=== PATIENT | female | born 1990 | race Caucasian/White ===

== ENCOUNTER → 2025-04-29 | Outpatient (CLI) | payer OTHER ==
[2025-04-29 10:46] LABS: BASO # 0.0 10^3/uL (0.0-0.2); BASO % 0.9 % (0.0-1.0); EOS # 0.1 10^3/uL (0.0-0.5); EOS % 1.5 % (0.0-3.0); LYMPH # 1.6 10^3/uL (1.5-5.0); LYMPH % 33.3 % (24.0-44.0); MONO # 0.3 10^3/uL (0.0-0.8); MONO % 5.8 % (2.0-8.0); NEUTROPHILS # 2.7 10^3/uL (1.5-8.5); NEUTROPHILS % 58.3 % (36.0-66.0); PLATELET COUNT, AUTOMATED 238 10^3/uL (150-450)
[2025-04-29 11:20] LABS: ALT/SGPT 10.0 U/L (7.0-40); AST/SGOT 15.0 U/L (<34); CALCIUM LEVEL 8.7 MG/DL (8.5-10.1); CARBON DIOXIDE LEVEL 22.0 MMOL/L (20-31); CHLORIDE LEVEL 107.0 MMOL/L (98-107); CHOLESTEROL LEVEL 191.0 MG/DL (<200); CHOLESTEROL RISK RATIO 4.82 (<5); CREATININE FOR GFR 0.89 MG/DL (0.55-1.30); GLOMERULAR FILTRATION RATE 86.1 (>60); LDL CHOLESTEROL 104.6 MG/DL (<100); NON-HDL-C 151.4 MG/DL; POTASSIUM SERUM 4.3 MMOL/L (3.5-5.1); SODIUM LEVEL 142.0 MMOL/L (136-145); TRIGLYCERIDES LEVEL 234.0 MG/DL (<150)
[2025-04-29 11:21] LABS: ESTIMATED AVERAGE GLUCOSE 94.0 MG/DL (60-110); PROLACTIN 5.86 NG/ML; TOTAL 25(OH) VITAMIN D 44.2 NG/ML (20.0-100.0)
== END ==
LOC: M LAB 10:11
PROVIDERS: ATTEND Nurse Practitioner Psychiatric/Mental Health
DX: F13.20 Sedative, hypnotic or anxiolytic dependence, uncomplicated (principal)

== ENCOUNTER → 2025-05-12 | Outpatient (CLI) | payer OTHER | LOC: M LAB 11:49 | PROVIDERS: ATTEND Nurse Practitioner Psychiatric/Mental Health | DX: F13.20 Sedative, hypnotic or anxiolytic dependence, uncomplicated (principal) ==